=== PATIENT | male | born 1985 | race Two or more races ===

== ENCOUNTER 2019-12-03 01:34 | Emergency (ER) | payer SELFPAY ==
[~2019-12-03] VITALS: Ht 182.9 cm; Wt 65.8 kg
--- NOTE | 2019-12-03 01:50 | NUR ---
ED Nurse Note: Patient brought in by ambulance RA58 accompanied by [employer] d/t overdose and 5150. Patient aao x 3 and ambulatory. Per [employer], patient ingested unknown type and dose of pills and liquor. Patient texted photos suggesting harming self to ex-girlfriend who then called [employer]. Patient restless and agitated. [employer] at bedside. Addendum: 12/03/19 at 0245 by [facility] ED Nurse Note: Patient brought in by ambulance RA58 accompanied by [employer] d/t overdose and 5150. Patient aao x 3 and ambulatory. Per [employer], patient ingested unknown type and dose of pills and liquor. Patient texted photos suggesting harming self to ex-girlfriend who then called [employer]. Patient restless and agitated. Charge and dried yeast supervisor notified for need for sitter upon admission. [employer] at bedside. Patient placed in bed in stable condition.
--- NOTE | 2019-12-03 01:57 | Emergency Room Report ---
History of Present Illness General Chief Complaint: Substance Abuse Source: Patient, EMS, Law Enforcement Present Illness HPI This a 34-year-old male presents with chief complaint of overdose. He texted his girlfriend picture of pills that he said he got a take. She called 911. Patient is brought in as a hold on a 5150 for danger to self. He admits to taking 2 Vicodin and 2 Klonopin. He also has some alcohol. Denies any suicidal thoughts homicidal thoughts to EMS. He is not cooperative and answering question here. Allergies: Coded Allergies: No Known Allergies (Unverified , 12/03/19) Patient History Past Medical History: see triage record, old chart reviewed Past Surgical History: none Family History: none Social History: other Immunizations: other Reviewed Nursing Documentation: PMH: Agreed; PSxH: Agreed Nursing Documentation-PMH History Of Psychiatric Problem: Yes Review of Systems ENT: Denies: sore throat Cardiovascular: Denies: chest pain, palpitations Gastrointestinal/Abdominal: Denies: nausea, vomiting, diarrhea Musculoskeletal: Denies: back problems Skin: Denies: rash Neurological: Denies: ASKEW, seizures All Other Systems: negative except mentioned in HPI Physical Exam Vital Signs Date Time Temp Pulse Resp B/P (MAP) Pulse Ox O2 Delivery O2 Flow Rate FiO2 12/03/19 01:36 98.2 108 19 127/89 (102) 100 Room Air Vitals unremarkable Sp02 EP Interpretation: reviewed, normal General Appearance: alert/responsive, no apparent distress, non-toxic Head: normocephalic, atraumatic Eyes: PERRL, EOMI ENT: oropharynx normal Neck: supple/symm/no masses Respiratory: effort normal, no rhonchi, no wheezing Cardiovascular: no murmur, gallop, rub Gastrointestinal: non-tender, no mass, non-distended, no rebound/guarding, normal bowel sounds Musculoskeletal: gait & station normal Neurologic: oriented x3, sensory intact, motor strength/tone normal Suicide Risk Assessment: Suicidal Ideation: No Had intent to initiate attempt: No Pt's plan for suicide attempt: Yes Has means to complete attempt: Yes Skin: no rash, normal palpation Medical Decision Making Diagnostic Impression: Primary Impression: Overdose Qualified Codes: T50.902A - Poisoning by unspecified drugs, medicaments and biological substances, intentional self-harm, initial encounter Additional Impression: Suicidal behavior Qualified Codes: T14.91XA - Suicide attempt, initial encounter ER Course This patient presents as a 5150 from police. It was reported that he felt suicidal and text his girlfriend a picture of pill bottles. Police at that 1 of the family members able to remove some of the bottle from his hands but he told her that there is more bottles that he can get. He claimed that he only took 2 Vicodin and 2 Klonopin. Patient is medically cleared for psychiatric evaluation. Last Vital Signs Date Time Temp Pulse Resp B/P (MAP) Pulse Ox O2 Delivery O2 Flow Rate FiO2 12/03/19 01:36 98.2 108 19 127/89 (102) 100 Room Air Status: improved Disposition: PSYCH HOSP/UNIT Condition: Stable Referrals: NOT CHOSEN IPA/,REFERRING (PCP) Yunior Griffin MD Dec 03, 2019 01:57
--- NOTE | 2019-12-03 01:58 | NUR ---
ED Nurse Note: Belongings list completed, placed in locker 1. Addendum: 12/03/19 at 0241 by [facility] ED Nurse Note: Belongings list completed, placed in locker 1. Patient only had clothing, iphone, ID card, and house keys on a keychain.
[2019-12-03 02:00] VITALS: BP 130/91
[2019-12-03] MEDS ORDERED: Haloperidol 5mg/ml Inj IM ONE (02:00)
[2019-12-03] MEDS ORDERED: DiphenhydrAMINE 50mg/ml Inj IVP ONE (02:00)
[2019-12-03 02:23] LABS: BASOPHILS % (AUTO) 1.7 % (0.0-2.0); EOSINOPHILS % (AUTO) 2.8 % (0.0-3.0); HEMATOCRIT 45.1 % (42.0-52.0); HEMOGLOBIN 16.7 G/DL (14.2-18.0); LYMPHOCYTES % (AUTO) 32.5 % (20.0-45.0); MEAN CORPUSCULAR VOLUME 85 FL (80-99); MONOCYTES % (AUTO) 10.6 % (1.0-10.0); NEUTROPHILS % (AUTO) 52.4 % (45.0-75.0); PLATELET COUNT 288 K/UL (150-450); RED CELL DISTRIBUTION WIDTH 11.4 % (11.6-14.8); WHITE BLOOD COUNT 6.9 K/UL (4.8-10.8)
[2019-12-03 02:41] LABS: ALANINE AMINOTRANSFERASE 25 U/L (12-78); ALBUMIN 4.4 G/DL (3.4-5.0); ALBUMIN/GLOBULIN RATIO 1.1 (1.0-2.7); ALKALINE PHOSPHATASE 110 U/L (46-116); ASPARTATE AMINO TRANSFERASE 18 U/L (15-37); BILIRUBIN,TOTAL 1.4 MG/DL (0.2-1.0); BLOOD UREA NITROGEN 10 mg/dL (7-18); CALCIUM 8.9 MG/DL (8.5-10.1); CARBON DIOXIDE 27 MMOL/L (21-32); CREATININE 1.2 MG/DL (0.55-1.30)
[2019-12-03 02:44] LABS: BILIRUBIN,DIRECT 0.3 MG/DL (0.0-0.3)
[2019-12-03 02:46] LABS: APPEARANCE,URINE CLEAR; BILIRUBIN, URINE NEGATIVE (NEGATIVE); GLUCOSE, URINE (UA) NEGATIVE (NEGATIVE); KETONES,URINE NEGATIVE (NEGATIVE); LEUKOCYTE ESTERASE ,URINE NEGATIVE (NEGATIVE); NITRITE,URINE NEGATIVE (NEGATIVE); PH,URINE 5 (4.5-8.0); PROTEIN,URINE NEGATIVE (NEGATIVE); UROBILINOGEN,URINE NORMAL MG/DL (0.0-1.0)
[2019-12-03 02:47] LABS: COLOR,URINE YELLOW
[2019-12-03 02:49] LABS: CHLORIDE 102 MMOL/L (98-107); POTASSIUM 3.7 MMOL/L (3.5-5.1); SODIUM 139 MMOL/L (136-145)
[2019-12-03 03:15] VITALS: BP 126/88
--- NOTE | 2019-12-03 07:21 | NUR ---
HAND-OFF: Report given to SEB Shepherd.
--- NOTE | 2019-12-03 07:25 | NUR ---
ED Nurse Note: pt with sitter observation maintained. pt sleeping and cooperative at this time. awaiting placement. NAD
--- NOTE | 2019-12-03 08:10 | NUR ---
ED Nurse Note: pt dietary tray ordered
[2019-12-03 09:03] VITALS: BP 102/57
--- NOTE | 2019-12-03 13:06 | NUR ---
ED Nurse Note: dr louie eval of pt and clearing pt from 5150 hold. charge lpn and aware. sitter relieved per dr louie
--- NOTE | 2019-12-03 13:39 | NUR ---
ED Nurse Note: pt given all belongings. states he is calling for ride home. angio out intactly on prior shift.
--- NOTE | 2019-12-03 13:46 | NUR ---
ED Nurse Note: Pt cleared by health care Provider for discharge. DC instructions was given and explained to pt and verbalized understanding of teachings. All medical devices such as ID band removed. Pt is AAO x4, ambulatory and left with all personal belongings.
[2019-12-03 13:47] VITALS: BP 102/57
--- NOTE | 2019-12-03 14:19 | Emergency Room Report ---
History of Present Illness General Chief Complaint: Substance Abuse Source: Patient, EMS, Law Enforcement Present Illness Allergies: Coded Allergies: No Known Allergies (Unverified , 12/03/19) COVID-19 Screening Contact w/high risk pt: No Recent Travel to affected area: No Experienced COVID-19 symptoms?: No Nursing Documentation-H History Of Psychiatric Problem: Yes Physical Exam Vital Signs Date Time Temp Pulse Resp B/P (MAP) Pulse Ox O2 Delivery O2 Flow Rate FiO2 12/03/19 01:36 98.2 108 19 127/89 (102) 100 Room Air Medical Decision Making Diagnostic Impression: Primary Impression: Overdose Additional Impression: Substance abuse ER Course NguPatient initially seen and evaluated by Dr. Griffin. See his note for full history and physical Patient placed on 5150 hold. Drug screen positive for substances. Alcohol elevated. Patient evaluated by psychiatry in the morning. Clinically sober. Denies SI or HI. Agrees that patient does not require emergent psychiatric evaluation. I agree with her assessment. Will discharge home. Provide outpatient mental health referrals Last Vital Signs Date Time Temp Pulse Resp B/P (MAP) Pulse Ox O2 Delivery O2 Flow Rate FiO2 12/03/19 13:47 76 18 102/57 99 Room Air 12/03/19 09:03 98.1 Status: improved Disposition: HOME, SELF-CARE Condition: Stable Referrals: [facility] + [facility] - Peds ER - Patient Instructions: Substance Use Disorder David Stahl MD Dec 03, 2019 14:19
--- NOTE | 2019-12-03 23:29 | Consultation ---
DATE OF CONSULTATION: 12/03/2019 HISTORY OF PRESENT ILLNESS: The patient is a 34-year-old male with a history of alcohol abuse versus dependence who was readmitted to the hospital on a 5150 as he called his girlfriend who is leaving him and has currently another boyfriend to tell her that he is going to overdose on some of the pills he had at home and he was placed on a hold. His friend also came into his house and took all his medications away from him. The patient is presenting with depressed mood and anxiety. He is denying any suicidal or homicidal ideation. No psychotic symptoms noted. The patient stated that he has never had a suicide attempt, never had a psychiatric hospitalization. The patient never been in a psychiatric hospital nor had any suicidal attempt. He does not have a psychiatrist. He is getting Klonopin from his primary care physician as well as oxy. PAST MEDICAL HISTORY: Nonsignificant. ALLERGIES: No known drug allergies. SUBSTANCE ABUSE HISTORY: He stated that he has been drinking alcohol on a daily basis; however, he has just 2 or 3 drinks a day. He denied any illicit drug use. and he has been using for an [employer]. Unemployment currently. His parents live in [place]. He states that he has good support system. MENTAL STATUS EXAMINATION: The patient is alert, oriented times self, place, situation, and date. Mood is depressed. Affect is blunted. Congruent with mood. Thought process is linear and goal oriented. Thought content, there is no suicidal, homicidal ideation. No psychotic symptoms noted. Cognition is intact. Insight and judgment is fair. ASSESSMENT: Avalon I Alcohol dependence, rule out oxycodone dependence. 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 Avalon II Deferred. Avalon III None. Avalon IV Unemployment. Breakup with girlfriend. Avalon V 50 PLAN: 1. The patient is reluctant to take any psychotropic medications. 2. I recommend SSRI like Prozac. 3. I also encouraged him not to take Klonopin or other. 4. We will discontinue the 5150. 5. The patient will be given referral to psychiatrist and substance use disorder program. Rajendra Brewer M.D. DR: Mercedes JOB#: [id number] CC: OLVIN
== END 2019-12-03 13:48 | disposition home or self-care (01) ==
LOC: EDBD 01:34 → EMR 01:56
DX: T50.902A Poisoning by unspecified drugs, medicaments and biological substances, intentional self-harm, initial encounter (principal); T14.91XA Suicide attempt, initial encounter; X58.XXXA Exposure to other specified factors, initial encounter; Y92.9 Unspecified place or not applicable; F10.20 Alcohol dependence, uncomplicated; F32.9 Major depressive disorder, single episode, unspecified
CPT/HCPCS: 36415; 80053; 80307; 81003; 82248; 85025; 96361; 96372; 96374; 99285; G0480; J1200; J1630; J7030